=== PATIENT | female | born 1970 | race Caucasian/White ===

== ENCOUNTER 2017-11-14 05:50 | Day surgery (SDC) | payer MEDICARE, MEDICAID ==
[2017-11-12 09:23] VITALS: BP 121/66
[2017-11-12 09:34] LABS: BASOPHILS % (AUTO) 0.5 % (0.0-5.0); EOSINOPHILS % (AUTO) 1.5 % (0.0-8.0); HEMATOCRIT 46.7 % (36-48); LYMPHOCYTES % (AUTO) 28.2 % (21.0-51.0); MEAN CORPUSCULAR HEMOGLOBIN 28.7 pg (27.0-33.0); MEAN CORPUSCULAR HGB CONC 34.2 g/dL (32.0-36.0); MONOCYTES % (AUTO) 5.2 % (3.0-13.0); NEUTROPHILS % (AUTO) 64.6 % (40.0-77.0); PLATELET COUNT (AUTO) 290 K/uL (130-400); RED BLOOD CELL COUNT(AUTO) 5.56 MIL/uL (4.00-5.50); RED CELL DISTRIBUTION WIDTH 13.4 % (11.0-15.5); WHITE BLOOD COUNT (AUTO) 13.3 K/uL (4.8-10.8)
[2017-11-12 09:34] LABS: APPEARANCE,URINE CLEAR (CLEAR); BILIRUBIN,URINE NEGATIVE (NEGATIVE); COLOR,URINE YELLOW (YELLOW); GLUCOSE, URINE (UA) NEGATIVE (NEGATIVE); KETONES,URINE NEGATIVE (NEGATIVE); LEUKOCYTE ESTERASE ,URINE NEGATIVE (NEGATIVE); NITRATE,URINE NEGATIVE (NEGATIVE); OCCULT BLOOD,URINE NEGATIVE (NEGATIVE); PH,URINE 6.5 (5.0-8.0); PROTEIN,URINE NEGATIVE (NEGATIVE); UROBILINOGEN,URINE 0.2 mg/dL (0.2-1.0)
[2017-11-12 09:44] LABS: POTASSIUM 4.7 mmol/L (3.5-5.1)
[2017-11-12 09:54] LABS: INR 0.93 (0.85-1.15); PARTIAL THROMBOPLASTIN TIME 26.7 SEC (26.3-35.5); PROTHROMBIN TIME 9.8 SEC (9.6-11.6)
[2017-11-13 10:35] VITALS: BP 111/60
[2017-11-13 14:45] VITALS: BP 126/68
[~2017-11-14] VITALS: Ht 157.5 cm; Wt 76.1 kg
[2017-11-14] VITALS (10 sets, daily range): BP systolic 110–136; BP diastolic 71–84
[~2017-11-14 05:50] MED LIST: AMLO5TAB2 PO; BIOT5000 PO; LITH300T3 PO; METO-391 PO; NITR0.4T50 SL; SODIUM CHLORIDE 0.9% 1000ML 1,000 ML IV ONE
[2017-11-14] MEDS ORDERED: HEPARIN SODIUM 1000UNIT/ML 10ML VIAL ONE (07:12)
[2017-11-14] MEDS ORDERED: NITROGLYCERIN 5 MG/ML 10 ML VIAL IV ONE (07:12)
[2017-11-14] MEDS ORDERED: ISOVUE-370 50ML VIAL IV ONE (07:12)
[2017-11-14] MEDS ORDERED: IOPAMIDOL-370 100 ML VIAL IV ONE (07:12)
[2017-11-14] MEDS ORDERED: LIDOCAINE HCL 2% 20ML ONE (07:13)
[2017-11-14] MEDS ORDERED: BIVALIRUDIN 250 MG/VIAL IV ONE (07:13)
[2017-11-14] MEDS ORDERED: SODIUM CHLORIDE 0.9% 1000ML 1,000 ML IV SCH (08:21)
[2017-11-14] MEDS ORDERED: DILT180C94 PO (08:25)
[2017-11-14] MEDS ORDERED: ATOR40TA71 PO (08:31)
[2017-11-14] MEDS ORDERED: DILTIAZEM HCL 120 MG CAP.SR.24H PO SCH (09:00)
== END 2017-11-14 12:30 | disposition home or self-care (01) ==
LOC: DAH 05:50
PROVIDERS: ATTEND Internal Medicine Cardiovascular Disease
DX: I25.119 Atherosclerotic heart disease of native coronary artery with unspecified angina pectoris (principal); I49.3 Ventricular premature depolarization; I10 Essential (primary) hypertension; E78.2 Mixed hyperlipidemia; Z68.33 Body mass index [BMI] 33.0-33.9, adult; F41.9 Anxiety disorder, unspecified; Z82.49 Family history of ischemic heart disease and other diseases of the circulatory system; Z79.899 Other long term (current) drug therapy; F31.9 Bipolar disorder, unspecified; Z90.710 Acquired absence of both cervix and uterus; Z90.49 Acquired absence of other specified parts of digestive tract; Z98.890 Other specified postprocedural states; Z88.0 Allergy status to penicillin; Z88.8 Allergy status to other drugs, medicaments and biological substances; Z79.2 Long term (current) use of antibiotics; Z79.01 Long term (current) use of anticoagulants
CPT/HCPCS: 36415; 71045; 80048; 81003; 85025; 85610; 85730; 93005; 93458; A4606; C1760; C1894; J1644; J3490 ×2; J7030; Q9967 ×2; J0583